=== PATIENT | female | born 1970 | race Caucasian/White ===

== ENCOUNTER 2025-06-30 11:57 | Emergency (ER) | payer OTHER ==
[~2025-06-30] VITALS: Ht 167.6 cm; Wt 59.1 kg
[2025-06-30 12:01] VITALS: BP 156/78; PULSE 90; O2SAT 98
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
[2025-06-30 14:25] VITALS: RESP 18
[2025-06-30] MEDS ORDERED: IBUP-1986 PO (14:33)
[2025-06-30] MEDS ORDERED: ACET-1025 PO (14:33)
[2025-06-30 14:52] VITALS: TEMP 97.1
== END 2025-06-30 15:02 | disposition home or self-care (01) ==
LOC: ER 11:59
DX: S20.212A Contusion of left front wall of thorax, initial encounter (principal); Z88.5 Allergy status to narcotic agent; Y04.8XXA Assault by other bodily force, initial encounter; Y93.89 Activity, other specified; Y92.89 Other specified places as the place of occurrence of the external cause; Y99.8 Other external cause status
CPT/HCPCS: 71250; 74176; 99284